=== PATIENT | female | born 1945 | race Caucasian/White ===

== ENCOUNTER → 2016-05-06 | Outpatient (CLI) | payer MEDICARE ==
[~2016-05-06] VITALS: Ht 160 cm; Wt 72.6 kg
[~2016-05-06] MED LIST: ASPI1TAB PO; ATOR1TAB21 PO; IBUP200C PO; LIDOCAINE 2% INJ 100 MG/5 ML SDV (FOR ANES.) As Ordered ONE; LISI10TA4 PO; LR 1,000 ML IV SCH; METF500T PO; PROPOFOL 200 MG/20 ML VIAL As Ordered ONE; VITA100037 PO
--- NOTE | 2016-05-06 12:24 | ROOR ---
Patient Name: Krys Gonzalez Procedure Date: 05/06/2016 11:45 AM Date of : 1945 Age: 70 Room: [facility] [place] Gender: Female Note Status: Finalized Procedure: Colonoscopy Indications: Pelvic pain, Clinically significant diarrhea of unexplained origin Providers: Dennis Dunn MD Referring MD: JAMILA GUILLAUME Requesting Provider: Medicines: Monitored Anesthesia Care Complications: No immediate complications. Procedure: Pre-Anesthesia Assessment: - Prior to the procedure, a History and Physical was performed, and patient medications and allergies were reviewed. The patient is competent. The risks and benefits of the procedure and the sedation options and risks were discussed with the patient. All questions were answered and informed consent was obtained. Patient identification and proposed procedure were verified by the physician, the nurse and the anesthesiologist in the procedure room. Mental Status Examination: alert and oriented. Airway Examination: normal oropharyngeal airway and neck mobility. CV Examination: regular rate and rhythm. Prophylactic Antibiotics: The patient does not require prophylactic antibiotics. Prior Anticoagulants: The patient has taken no previous anticoagulant or antiplatelet agents. ASA Grade Assessment: II - A patient with mild systemic disease. After reviewing the risks and benefits, the patient was deemed in satisfactory condition to undergo the procedure. The anesthesia plan was to use monitored anesthesia care (MAC). Immediately prior to administration of medications, the patient was re-assessed for adequacy to receive sedatives. The heart rate, respiratory rate, oxygen saturations, blood pressure, adequacy of pulmonary ventilation, and response to care were monitored throughout the procedure. The physical status of the patient was re-assessed after the procedure. The Colonoscope [id number] #[id number] was introduced through the anus and advanced to the cecum, identified by appendiceal orifice and ileocecal valve. The colonoscopy was performed without difficulty. The patient tolerated the procedure well. The quality of the bowel preparation was excellent. Findings: The perianal and digital rectal examinations were normal. A few small and large-mouthed diverticula were found in the entire colon. Normal mucosa was found in the entire colon. Biopsies for histology were taken with a cold forceps from the ascending colon, right colon, transverse colon, descending colon and sigmoid colon for evaluation of microscopic colitis. Estimated blood loss was minimal. Impression: - Diverticulosis in the entire examined colon. - Normal mucosa in the entire examined colon. Biopsied. Recommendation: - Discharge patient to home. - Resume previous diet. - Continue present medications. - Await pathology results. - Telephone endoscopist for pathology results in 10 days. Dennis Dunn MD 05/06/2016 12:24:06 PM Number of Addenda: 0 Note Initiated On: 05/06/2016 11:45 AM Estimated Blood Loss: Estimated blood loss was minimal.
[2016-05-06 12:45] VITALS: BP 151/77
== END | disposition home or self-care (01) ==
LOC: M OPP 09:43
PROVIDERS: ATTEND Surgery
DX: K57.30 Diverticulosis of large intestine without perforation or abscess without bleeding (principal); I10 Essential (primary) hypertension; E78.00 Pure hypercholesterolemia, unspecified; E11.9 Type 2 diabetes mellitus without complications; M19.90 Unspecified osteoarthritis, unspecified site; K21.9 Gastro-esophageal reflux disease without esophagitis; Z79.899 Other long term (current) drug therapy; Z79.82 Long term (current) use of aspirin; Z79.84 Long term (current) use of oral hypoglycemic drugs; Z88.1 Allergy status to other antibiotic agents